=== PATIENT | female | born 1945 | race Caucasian/White ===

== ENCOUNTER 2022-01-06 10:37 | Outpatient (CLI) | payer MEDICARE, OTHER ==
[~2022-01-06 10:37] MED LIST: ACET-1025 PO; MULT-1085 PO; RIVA20TA PO; ROSU40TA PO
== END 2022-01-06 23:59 | disposition home or self-care (01) ==
LOC: VAS 10:37
PROVIDERS: ATTEND Orthopaedic Surgery
DX: M25.562 Pain in left knee (principal); Z96.652 Presence of left artificial knee joint
CPT/HCPCS: 93971